=== PATIENT | male | born 1990 | race African-American/Black ===

== ENCOUNTER 2022-03-09 15:44 | Emergency (ER) | payer SELFPAY ==
[2022-03-09] MEDS ORDERED: Acetaminophen/oxyCODONE 325-5 MG Tab PO ONE (16:00)
== END 2022-03-09 17:21 | disposition home or self-care (01) ==
LOC: MW.ED 15:44
DX: S49.91XA Unspecified injury of right shoulder and upper arm, initial encounter (principal); Z88.8 Allergy status to other drugs, medicaments and biological substances; Z86.16 Personal history of COVID-19; W01.198A Fall on same level from slipping, tripping and stumbling with subsequent striking against other object, initial encounter
CPT/HCPCS: 73030; 73080; 73110; 73120; 99283; A9270; 99282